=== PATIENT | female | born 1975 | race Caucasian/White ===

== ENCOUNTER 2016-12-31 18:23 | Emergency (ER) | payer SELFPAY ==
[2016-12-31 18:28] VITALS: BP 110/68; BMI 18.1
--- NOTE | 2016-12-31 19:29 | DR.GENAD ---
HPI - PCP Primary Care Physician: none - Complaint/Symptoms Chief Complaint:: pt cut her left thumb with a pizza cutter - Source History Provided: Patient - Mode of Arrival Mode of Arrival: Ambulatory - Timing Onset of Chief Complaint: 12/31/16 PMH - PMH Past Medical History: Yes Past Medical History: Hypertension Past Surgical History: Yes Past Surgical History Comment: tubal - Family History History of Family Medical Conditions: No - Social History Does patient currently use any type of tobacco product: Yes Have you used tobacco products in the last 12 months: Yes Type of Tobacco Use: Cigarettes How many years tobacco product used: 30 Does any household member use tobacco: No Alcohol Use: None Do you use any recreational Drugs:: No Lives With: Family Lives Where: Home - infectious screening In the last 2 months have you had wt loss of >10#?: NO Have you had fever, night sweats or hemotysis?: No Have you traveled outside the country in the last 6 months?: No Isolation: Standard PE - Vital Signs Vitals: Temperature 97.8 F Pulse Rate 67 Respiratory Rate 18 Blood Pressure 110/68 O2 Sat by Pulse Oximetry 100 - Discharge Plan Disposition: [facility]BS After Triage Condition: Stable - Follow ups/Referrals Follow ups/Referrals: NFD,None [Primary Care Provider] - 3 days - Instructions
== END 2016-12-31 19:30 | disposition left against medical advice (07) ==
LOC: ER 18:31
DX: S61.012A Laceration without foreign body of left thumb without damage to nail, initial encounter (principal); W45.8XXA Other foreign body or object entering through skin, initial encounter
CPT/HCPCS: 99281